=== PATIENT | female | born 1990 | race Two or more races ===

== ENCOUNTER 2019-04-25 16:14 | Emergency (ER) | payer OTHER ==
[~2019-04-25] VITALS: Ht 175.3 cm; Wt 94.4 kg
[2019-04-25 16:19] VITALS: Ht 175.3 cm; Wt 94.4 kg
[2019-04-25] MEDS ORDERED: LIDOCAINE/MYLANTA 40 ML BTL PO STA (16:55)
[2019-04-25] MEDS ORDERED: BELLADONNA/PHENOBARBITAL TAB PO STA (16:55)
--- NOTE | 2019-04-25 17:50 | ERD ---
ER Documentation Chief Complaint Chief Complaint took about 10 naproxen about 20 min ago HPI This a 28-year-old female who accidentally took 6-10 [id number] Aleve. She had them in her hand and she did not think there was more than there was and she took the whole thing. She said that she took a handful for sciatica pain. She was not trying to hurt herself and she says she feels to be for doing so is not sure why she did and it was purely spontaneous. She did this about 30 minutes ago. She is had no nausea vomiting or abdominal pain. No prior history of GI bleed or renal insufficiency. ROS All systems reviewed and are negative except as per history of present illness. PMhx/Soc History of Surgery: Yes ( X 2, APPENDECTOMY, CHOLECYSTECTOMY) Anesthesia Reaction: No Hx Neurological Disorder: Yes (SCIATICA) Hx Respiratory Disorders: No Hx Cardiac Disorders: No Hx Psychiatric Problems: No Hx Miscellaneous Medical Probl: No Hx Alcohol Use: No Hx Substance Use: No Hx Tobacco Use: No Smoking Status: Never smoker FmHx Family History: No coronary disease Physical Exam Vitals Vital Signs Date Temp Pulse Resp B/P (MAP) Pulse Ox O2 O2 Flow FiO2 Time Delivery Rate 04/25/19 98.4 83 18 161/75 98 16:19 (103) Physical Exam Const: Well-developed, well-nourished Head: Atraumatic, normocephalic Eyes: Normal Conjunctiva, PERRLA, EOMI, normal sclera, no nystagmus ENT: Normal External Ears, Nose and Mouth, moist mucus membranes. Neck: Full range of motion. No meningismus, no lymphadenopathy. Resp: Clear to auscultation bilaterally, no wheezing, rhonchi, rales Cardio: Regular rate and rhythm, no murmurs, S1 S2 present Abd: Soft, non tender x 4, non distended. Normal bowel sounds, no guar ding or rebound, no pulsitile abdominal masses or bruits Skin: No petechiae or rashes, no ecchymosis , no maculopapular rash Back: No midline or flank tenderness Ext: No cyanosis, or edema, FROM x 4, normal inspection, neurovascularly intact x 4 Neur: Awake and alert, STR 5/5 x 4, sensation intact x 4, no focal findings, cerebellum intact Psych: Normal Mood and Affect Result Diagram: 04/25/19 1704 Results 24 hrs Laboratory Tests Test 04/25/19 17:04 04/25/19 17:07 Sodium Level 141 mmol/L Potassium Level 3.7 mmol/L Chloride Level 106 mmol/L Carbon Dioxide Level 25 mmol/L Anion Gap 10 Blood Urea Nitrogen 11 mg/dl Creatinine 0.62 mg/dl Est Glomerular Filtrat Rate mL/min > 60 mL/min Glucose Level 98 mg/dl Calcium Level 9.4 mg/dl POC Beta HCG, Qualitative NEGATIVE Current Medications Medications Dose Sig/Edmund Start Time Status Last (Trade) Ordered Route PRN Stop Time Admin Dose Reason Admin 40 ml ONCE STAT 04/25/19 DC 04/25/19 Miscellaneous PO 16:55 16:58 Medication 04/25/19 16:56 (Gi Cocktail (2)) Belladonna/ 2 tab ONCE STAT 04/25/19 DC 04/25/19 Phenobarbital PO 16:55 16:58 () 04/25/19 16:56 Procedures/MDM Baseline BUN and creatinine are normal will give her some food and GI cocktail. She is feeling better and has no symptoms. To give her warning signs to return. We did call poison control and they agree with above plan Departure Diagnosis: Primary Impression: Accidental overdose Encounter type: initial encounter Qualified Codes: T50.901A - Poisoning by unspecified drugs, medicaments and biological substances, accidental (unintentional), initial encounter Condition: Stable Patient Instructions: Overdose, Accidental (Adult) Referrals: DOCTOR,NOT ON STAFF (PCP) KOURTNEY NINA DO Apr 25, 2019 17:50
[2019-04-25 17:52] VITALS: BP 117/83; PULSE 79; RESP 15
== END 2019-04-26 06:38 | disposition home or self-care (01) ==
LOC: E/R 16:14
DX: T39.311A Poisoning by propionic acid derivatives, accidental (unintentional), initial encounter (principal)
CPT/HCPCS: 36415; 80048; 81025; Z7502; Z7610; 99283